=== PATIENT | male | born 1955 | race Caucasian/White ===

== ENCOUNTER 2023-04-13 15:11 | Emergency (ER) | payer MEDICARE, OTHER, SELFPAY ==
[2023-04-13 15:15] VITALS: BP 168/79
[2023-04-13 15:43] LABS: % Basophils 0.7 % (0-2); % Eosinophils 1.3 % (0-6); % Immature Granulocytes 0.2 % (0-0.5); % Lymphocytes 20.2 % (20.5-51.1); % Monocytes 7.8 % (1.7-9.3); % Neutrophils 69.8 % (42.2-75.2); Absolute Eosinophils 0.1 10^3/uL (0-0.7); Absolute Lymphocytes 0.9 10^3/uL (1.2-3.4); Absolute Monocytes 0.4 10^3/uL (0.1-0.6); Absolute Neutrophils 3.2 10^3/uL (1.4-6.5); Hematocrit 38.6 % (39.0-52.0); Hemoglobin 14.1 g/dL (13.0-18.0); Mean Corp Hgb Conc. 36.5 g/dL (33.0-37.0); Mean Corpuscular Hgb 31.5 pg (27.0-31.0); Mean Corpuscular Volume 86.2 fL (80.0-94.0); Mean Platelet Volume 9.6 fL (7.4-10.4); Nucleated Red Blood Cells % 0 % (-); Platelet Count 129 10^3/uL (130-400); Red Blood Cell Count 4.48 10^6/uL (4.70-6.10); Red Cell Dist. Width 11.9 % (11.5-14.5); White Blood Cell Count 4.6 10^3/uL (4.8-10.8)
[2023-04-13 16:03] LABS: Blood Urea Nitrogen 15 mg/dl (9-20); Calcium 9.2 mg/dl (8.4-10.2); Carbon Dioxide 27 mmol/L (22-30); Chloride 100 mmol/L (98-107); Glucose 138 mg/dl (70-99); Potassium 4.1 mmol/L (3.5-5.1); Sodium 133 mmol/L (135-145); eGFR > 60.00
--- NOTE | 2023-04-13 16:32 | ED.MUSCINJ ---
HPI-Injury
General
Chief Complaint: Musculo-Skeletal Complaint
Source: patient
Exam Limitations: none
Time Seen by Provider: 04/13/23 15:41
Nursing documentation reviewed up to this point in time: agreed with
Travel History
Have you had any contact with someone who has COVID-19?: No
Do you have any symptoms of coronavirus? Fever > 100 degrees, chills, cough, shortness of breath, sore throat, loss of taste or smell, muscle aches, or headache?: No
History of Present Illness-Injury
Initial Injury comments:
67 yo male with hx of HTN, HLD states one week ago 6:30 a.m. had pain right ankle and heel areas, couldn't dorsi or plantar flex or flex his toes due to severe burning pain about the ankle and heel. Took Ibuprofen 600 mg got up and around,
ambulating and pain subsided by 4 hours later. Three days ago same episode for about an hour, relieved with Ibuprofen. Went to and had neg xray of the ankle. Yesterday another similar episode for one hour, relieved with Ibuprofen. Called his PCP
Dr. Inman today and told to come to ED to r/o a clot.
Denies CP, SOB.
Past History
Past History
ED Past Medical History: HTN and Hypercholesterolemia
ED Past Surgical History: Orthopedic (R knee replacement)
Social History
Tobacco: Non-smoker
Personal:
Living: with family
Review of Systems
Review of Systems
Allergies reviewed?: Yes
All Other Systems: ROS reviewed and negative except as documented in HPI and ROS
Constitutional: Denies fever
Musculoskeletal: Reports other (intermittent pain about the right ankle and heel)
Skin: Reports no symptoms
Phy Exam
Physical Exam
Physical Exam:
PHYSICAL EXAMINATION:
General: no apparent distress, not acutely ill
Neuro: alert and oriented.
Heart: RRR
Lungs: CTA
Psychiatric: well kept. interactive and cooperative
Musculoskeletal: Moves with ease. Asymptomatic at this time. Full range of motion of the ankle and toes, no redness, swelling or warmth. Calf is nontender brisk capillary refill. Nontender to palpation about the ankle and
foot.
Skin: Warm, pink.
Injury Course
Orders/Labs/Results
Orders:
Orders
04/13/23 15:19
CR Ankle - Right Min 3 Views * Urgent
Comment:
Reason For Exam: pain
US Legs, Right [US Periph Venous LOWER Ext RT] Urgent
Comment:
Reason For Exam: pain
04/13/23 15:30
Basic Metabolic Panel Urgent
Complete Blood Count/With Diff Urgent
Uric Acid Urgent
Abnormal Lab Results
04/13/23
15:30
WBC 4.6 L 10^3/uL
(4.8-10.8)
RBC 4.48 L 10^6/uL
(4.70-6.10)
Hct 38.6 L %
(39.0-52.0)
MCH 31.5 H pg
(27.0-31.0)
Plt Count 129 L 10^3/uL
(130-400)
Absolute Lymphs (auto) 0.9 L 10^3/uL
(1.2-3.4)
Lymphocytes % 20.2 L %
(20.5-51.1)
Sodium 133 L mmol/L
(135-145)
Creatinine 0.6 L mg/dL
(0.7-1.3)
Glucose 138 H mg/dl
(70-99)
04/13/23 15:30
04/13/23 15:30
MDM/Problems Addressed
Differential Diagnosis Includes:
Musculoskeletal pain, Achilles tendinopathy, neuropathic pain, DVT
MDM/Problems Addressed:
67 yo male with hx of HTN, HLD states one week ago 6:30 a.m. had pain right ankle and heel areas, couldn't dorsi or plantar flex or flex his toes due to severe burning pain about the ankle and heel. Took Ibuprofen 600 mg got up and around,
ambulating and pain subsided by 4 hours later. Three days ago same episode for about an hour, relieved with Ibuprofen. Went to and had neg xray of the ankle. Yesterday another similar episode for one hour, relieved with Ibuprofen. Called his PCP
Dr. Inman today and told to come to ED to r/o a clot.
Denies CP, SOB.
No swelling, redness or warmth. Patient is asymptomatic at this time
04/13/2023 1639 PM
CBC normal
CMP normal
X-ray right ankle radiology report read: IMPRESSION:
1. 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
2. � Moderate pes planus deformity.
3. � Moderate-sized plantar calcaneal enthesophyte.
4. � 5.9 mm chronic avulsion fracture of the medial malleolus.
5. � 4.6 mm chronic avulsion fracture of the distal tip of the fibula.
04/13/2023 1721 PM
Ultrasound negative for DVT
Pt given copy of labs and disc of xray to take to [facility]
Pt has own walking boot he is using.
*Critical Care Note
Total Time (30-74mins, 75-104mins- exclusive of procedures): Not Applicable
ED Attending Note
-
Portions of this chart may have been created with voice recognition software.� Occasional wrong word or��sound alike� substitutions may have occurred due to the inherent limitations of voice recognition software.
Discharge Plan
Departure
Patient Disposition: Home (Routine Discharge)
Date of Disposition: 04/13/23
Time of Disposition: 17:22
Patient with high blood pressure during this ER visit?: No
Condition: Good
Discharge Problem:
Acute right ankle pain
Instructions: Muscle and Bone Pain (DC), Using Cold for Pain
Referrals:
Ben Lopez DPM [Specified Professional Personl] - Next open appointment
Gold Inman DO [Family Provider] -
Activity Restrictions/Additional Instructions:
As we discussed, your ultrasound shows no clot.
Your x-ray shows some arthritic changes as well as bone spur in the heel area.
Continue Ibuprofen 600 mg (with food) every 6 hours as needed for pain.
Call the [facility] tomorrow and make next available appointment.
Take copy of xray disc and report with you.
Interventions
Interventions:
*Risk Screen - Suicide Last Done: 04/13/23 15:15
*General Assessment Last Done: 04/13/23 15:15
*Neglect/Abuse Screening Last Done: 04/13/23 15:15
*Nursing Disposition Last Done: 04/13/23 17:32
ED-Musculoskeletal Assessment Last Done: 04/13/23 16:48
Discharge Date and Time
Discharge Date/Time: 04/13/23 17:32
[2023-04-13 17:22] VITALS: BP 123/56
[2023-04-13 17:32] VITALS: BP 123/56
== END 2023-04-13 17:32 | disposition home or self-care (01) ==
LOC: EMR 15:11
PROVIDERS: Emergency Medicine; EMERGENCY PHYSICIAN Emergency Medicine; FAMILY PHYSICIAN General Practice
DX: M25.571 Pain in right ankle and joints of right foot (principal); I10 Essential (primary) hypertension; E78.00 Pure hypercholesterolemia, unspecified; Z96.651 Presence of right artificial knee joint
CPT/HCPCS: 99284; 73610; 80048; 84550; 85025; 93971